=== PATIENT | female | born 1970 | race Caucasian/White ===

== ENCOUNTER 2016-11-16 02:31 | Emergency (ER) | payer OTHER ==
[~2016-11-16] VITALS: Ht 157.5 cm; Wt 52.3 kg
[2016-11-16 03:15] LABS: HEMATOCRIT 39.7 % (36.0-46.0); MCH 30.6 PG (29.0-34.0); MCHC 33.2 G/DL (30.0-36.0); MCV 91.9 FL (83-99); MEAN PLAT.VOLUME 10.1 uM^3 (9.5-12.4); PLATELET COUNT 301 K/uL (156-360); RED BLOOD COUNT 4.32 M/uL (3.80-5.20); WHITE BLOOD COUNT 11.5 K/uL (4.1-10.2)
[2016-11-16 03:34] LABS: TROP-I INTERPRETATION NEGATIVE; TROPONIN-I < 0.01 ng/mL (0.0-0.30)
[2016-11-16 04:05] LABS: CHLORIDE 106 mEq/L (99-109); POTASSIUM 3.2 mEq/L (3.7-5.4); SODIUM 143 mEq/L (136-147)
[2016-11-16 04:06] LABS: GLUCOSE 122 mg/dL (70-99)
[2016-11-16 04:08] LABS: ANION GAP 16 MEQ/L (2-14)
[2016-11-16 04:10] LABS: GFR ESTIMATE (CALCULATED) > 59 mL/min/
[2016-11-16 04:11] LABS: UREA NITROGEN (BUN) 16 mg/dL (9-23)
[2016-11-16 06:10] LABS: TOTAL BILIRUBIN 0.4 mg/dL (0.0-1.0)
[2016-11-16 06:15] LABS: LIPASE 36 U/L (1.0-51.0)
[2016-11-16 06:24] LABS: ALKALINE PHOSPHATASE 41 IU/L (3-129)
[2016-11-16 06:33] LABS: QUANTITATIVE HCG < 4.0 MIU/ML
[2016-11-16 06:46] LABS: ADD MIUA? YES; BILIRUBIN NEGATIVE; BLOOD NEGATIVE; COLOR YELLOW ((YELLOW)); GLUCOSE (STRIP) NEGATIVE; KETONES NEGATIVE; LEUKOCYTES SMALL; NITRITE NEGATIVE; PROTEIN (STRIP) NEGATIVE; SPECIFIC GRAVITY 1.015 (1.000-1.030)
[2016-11-16 06:51] LABS: BACTERIA NONE SEEN /HPF; EPITHELIAL CELLS RARE /HPF; MUCUS TRACE /LPF; RED BLOOD CELLS 0-5 /HPF (0-5); UCUL ADDED? NO; WHITE BLOOD CELLS 0-5 /HPF (0-5)
[2016-11-16 07:35] LABS: TROP-I INTERPRETATION NEGATIVE; TROPONIN-I 0.02 ng/mL (0.0-0.30)
[2016-11-16] MEDS ORDERED: NAPROSYN500 MG PO (07:52)
[2016-11-16] MEDS ORDERED: ZOFRAN4 MG PO (07:52)
[2016-11-16 08:22] VITALS: BP 121/70
== END 2016-11-16 08:24 | disposition home or self-care (01) ==
LOC: EME 02:31
PROVIDERS: Emergency Medicine
DX: R10.13 Epigastric pain (principal); R07.9 Chest pain, unspecified; R06.02 Shortness of breath; Z87.442 Personal history of urinary calculi
CPT/HCPCS: 71020; 74177; 76705; 80048; 80053; 81003; 83690; 84484; 84702; 85027; 93005; 99281; 99285; J2270; J2405; J7030